=== PATIENT | male | born 1960 | race Caucasian/White ===

== ENCOUNTER 2019-01-23 21:40 | Emergency (ER) | payer BC ==
[~2019-01-23] VITALS: Ht 170.2 cm; Wt 78.3 kg
[2019-01-23 21:41] VITALS: BP 133/93
--- NOTE | 2019-01-23 22:31 | NUR ---
MARY RN: Patient/Caregiver given discharge instructions and they have confirmed that they understand the instructions. Patient ambulatory with steady gait.
== END 2019-01-23 22:44 | disposition home or self-care (01) ==
LOC: ED 22:38
DX: L24.5 Irritant contact dermatitis due to other chemical products (principal)
CPT/HCPCS: 99283

== ENCOUNTER 2021-01-27 00:33 | Emergency (ER) | payer BC, OTHER ==
[~2021-01-27] VITALS: Ht 170.2 cm; Wt 74.0 kg
--- NOTE | 2021-01-27 00:57 | NUR ---
PT PRESENT AT ER WITH ABD PAIN AND CHEST PAIN. PT STATES HIS CHEST PAIN STARTED SUDDENLY AROUND 1900 ON 01/26/21, DISAPATED ACROSS HIS CHEST AND WAS GONE. PT STATES HIS ABD PAIN HAS BEEN SINCE THE AFTERNOON ON 01/26/21. ERP AT BEDSIDE. PT IN GOWN AND HOOKED TO ALL THE MONITORS, RESTING ON GURNEY.
[2021-01-27] MEDS ORDERED: DICYCLOMINE 20 MG TABLET PO ONE (01:00)
[2021-01-27] MEDS ORDERED: DICYCLOMINE 20 MG TABLET ONE (01:05)
[2021-01-27 01:07] LABS: BASOPHILS % (AUTO) 1 % (0-1); EOSINOPHILS % (AUTO) 1 % (1-7); LYMPHOCYTES % (AUTO) 17 % (22-44); MEAN CORPUSCULAR HEMOGLOBIN 28.6 pg (27.5-34.5); MEAN CORPUSCULAR HGB CONC 34.6 g/dL (33.2-36.2); MEAN PLATELET VOLUME 6.9 fL (7.4-10.4); MONOCYTES % (AUTO) 9 % (2-9); NEUTROPHILS % (AUTO) 73 % (42-75); PLATELET COUNT 386 x10^3/uL (130-400); RED BLOOD COUNT 5.19 x10^6/uL (4.38-5.82); RED CELL DISTRIBUTION WIDTH 13.9 % (9.4-14.8)
[2021-01-27 01:08] LABS: MD NO
--- NOTE | 2021-01-27 01:16 | NUR ---
EKG DONE, MEDICATION GIVEN, AND COVID SWAB DONE AND SENT TO LAB, PT RESTING COMFORTABLY ON GURNEY, DENIES NEEDS AT THIS TIME.
[2021-01-27 01:19] LABS: ALANINE AMINOTRANSFERASE 84 U/L (12-78); ANION GAP 8 mmol/L (5-15); CALCIUM 8.6 mg/dL (8.5-10.1); CHLORIDE 103 mmol/L (98-107); CREATININE 1.03 mg/dL (0.7-1.3)
[2021-01-27 01:21] LABS: ALKALINE PHOSPHATASE 174 U/L (45-117); BILIRUBIN,TOTAL 0.4 mg/dL (0.2-1.0); TOTAL PROTEIN 8.1 g/dL (6.4-8.2)
--- NOTE | 2021-01-27 02:05 | NUR ---
PT STATING HE HAS RELIEF FROM PAIN IN ABD. RESTING COMFORTABLY ON GURNEY, DENIES NEEDS AT THIS TIME.
[2021-01-27 02:17] VITALS: BP 101/64
--- NOTE | 2021-01-27 02:32 | NUR ---
Patient given discharge instructions and they have confirmed that they understand the instructions. Patient ambulatory with steady gait.
== END 2021-01-27 02:00 ==
LOC: ED 01:10
DX: R10.84 Generalized abdominal pain (principal); J18.9 Pneumonia, unspecified organism; R06.00 Dyspnea, unspecified; F17.210 Nicotine dependence, cigarettes, uncomplicated; Z20.822 Contact with and (suspected) exposure to COVID-19
CPT/HCPCS: 36415; 71045; 80053; 83690; 85025; 93005; 99285; 99406; U0003; U0005